=== PATIENT | male | born 2000 | race Caucasian/White ===

== ENCOUNTER 2021-12-23 16:55 | Emergency (ER) | payer SELFPAY ==
[2021-12-23] MEDS ORDERED: IBUPROFEN600 MG PO (19:59)
[2021-12-23] MEDS ORDERED: BACTROBAN OINT22 GM EXT (19:59)
== END 2021-12-23 20:04 | disposition home or self-care (01) ==
LOC: ER1 16:55
DX: S01.311A Laceration without foreign body of right ear, initial encounter (principal); V86.99XA Unspecified occupant of other special all-terrain or other off-road motor vehicle injured in nontraffic accident, initial encounter
CPT/HCPCS: 12011; 70450; 99283